=== PATIENT | male | born 1960 | race Caucasian/White ===

== ENCOUNTER → 2024-05-27 16:30 | Outpatient (REF) | payer OTHER, SELFPAY | LOC: RAD 16:30 | PROVIDERS: ATTENDING PHYSICIAN Family Medicine; FAMILY PHYSICIAN Internal Medicine Cardiovascular Disease | DX: M25.572 Pain in left ankle and joints of left foot (principal) | CPT/HCPCS: 73610 ==

== ENCOUNTER 2024-07-06 06:19 | Day surgery (SDC) | payer OTHER, SELFPAY | END 2024-07-06 10:06 | disposition home or self-care (01) | LOC: GI 06:19 | PROVIDERS: ATTENDING PHYSICIAN Internal Medicine Gastroenterology | DX: Z12.11 Encounter for screening for malignant neoplasm of colon (principal); D12.2 Benign neoplasm of ascending colon; K63.89 Other specified diseases of intestine; K57.30 Diverticulosis of large intestine without perforation or abscess without bleeding; Q43.8 Other specified congenital malformations of intestine; Z83.719 Family history of colon polyps, unspecified; K64.8 Other hemorrhoids | CPT/HCPCS: 45385; 45380; 88305 ==

== ENCOUNTER 2025-01-07 15:24 | Emergency (ER) | payer OTHER, SELFPAY ==
[2025-01-07 15:28] VITALS: BP 165/84
[2025-01-07 16:19] VITALS: BP 138/79
[2025-01-07 16:49] LABS: % Basophils 0.4 % (0-2); % Eosinophils 3.2 % (0-6); % Immature Granulocytes 0.4 % (0-0.5); % Lymphocytes 7.8 % (20.5-51.1); % Neutrophils 84.2 % (42.2-75.2); Absolute Eosinophils 0.3 10^3/uL (0-0.7); Absolute Lymphocytes 0.6 10^3/uL (1.2-3.4); Absolute Monocytes 0.3 10^3/uL (0.1-0.6); Absolute Neutrophils 6.8 10^3/uL (1.4-6.5); Hematocrit 39.3 % (39.0-52.0); Hemoglobin 13.9 g/dL (13.0-18.0); Mean Corp Hgb Conc. 35.4 g/dL (33.0-37.0); Mean Corpuscular Volume 81.9 fL (80.0-94.0); Nucleated Red Blood Cells % 0 % (-); Platelet Count 196 10^3/uL (130-400); Red Cell Dist. Width 12.2 % (11.5-14.5); White Blood Cell Count 8.1 10^3/uL (4.8-10.8)
[2025-01-07 16:59] LABS: Lactic Acid 1.3 mmol/L (0.7-2.0)
[2025-01-07 17:00] VITALS: BP 118/71
[2025-01-07 17:06] LABS: ALT (SGPT) 76 U/L (0-50); AST (SGOT) 48 U/L (17-59); Albumin 3.9 g/dl (3.5-5.0); Alkaline Phosphatase 50 U/L (38-126); Blood Urea Nitrogen 20 mg/dl (9-20); Calcium 8.9 mg/dl (8.4-10.2); Carbon Dioxide 22 mmol/L (22-30); Chloride 103 mmol/L (98-107); Glucose 144 mg/dl (70-99); Lipase 212 U/L (23-300); Magnesium 2.2 mg/dl (1.6-2.3); Potassium 4.3 mmol/L (3.5-5.1); Sodium 132 mmol/L (135-145); Total Protein 6.8 g/dl (6.3-8.2); eGFR > 60.00
[2025-01-07 17:12] LABS: Troponin I < 0.012 ng/ml
[2025-01-07 17:37] LABS: TSH Reflex To Free T4 3.12 uIU/ml (0.47-4.68)
[2025-01-07 18:00] VITALS: BP 118/77
[2025-01-07 18:48] LABS: Urine Albumin 2+ (Neg - Trace); Urine Bilirubin Negative (Negative); Urine Character Clear (Clear); Urine Color Amber; Urine Glucose Negative (Negative); Urine Ketone 2+ (Negative); Urine Leukocyte Negative (Negative); Urine Nitrite Negative (Negative); Urine Occult Blood 2+ (Negative); Urine Specific Gravity 1.025 (<1.030); Urine Urobilinogen 1+ (Neg - 1+)
[2025-01-07 18:56] LABS: Urine Red Blood Cell 0-2 /HPF (0-2); Urine Squamous Cell 0-2 /LPF (Few); Urine White Cell 0-2 /HPF (0-5)
--- NOTE | 2025-01-07 20:59 | ED.GENMED ---
History of Present Illness
General
Chief Complaint: Fatigue
Source: patient
Time Seen by Provider: 01/07/25 16:04
History of Present Illness
History of Present Illness:
Note:
CHIEF COMPLAINT(S)
Fatigue and weight loss.
HISTORY OF PRESENT ILLNESS
The patient is a 64-year-old male with a significant past medical history of hypertension and pre-diabetes (A1C of 6.4) presenting with a primary complaint of profound fatigue over the last two weeks. He reports feeling exhausted, having only about
15% of his usual energy level. The patient has noted a 17-pound weight loss during this period, secondary to poor appetite. 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 He
initially experienced fever and chills, which have since resolved. Additionally, he experiences palpitations without associated chest pain. The patient suspects a possible systemic infection and has self-administered doxycycline and
clindamycin for abscesses on his chin and knee, which he attributes to occupational exposure. He also reports GERD symptoms and believes he might have a hiatal hernia. He has recently tested negative for Lyme disease and COVID-19. His liver enzymes
were reportedly elevated approximately two weeks ago but have since normalized.
ADDITIONAL HISTORY OBTAINED FROM SOURCES OTHER THAN THE PATIENT
According to the patient, his spouse noted fever and chills last week.
CHRONIC MEDICAL CONDITIONS SIGNIFICANTLY AFFECTING CARE
Chronic conditions affecting care: hypertension, pre-diabetes.
SOCIAL DETERMINANTS AFFECTING HEALTH
The patient works in a high-stress environment at a intermediate. He reports occupational exposure to potential infections and notes previous alcohol use, stating he has significantly reduced intake with very minimal consumption over the last nine months.
ALLERGIES
No known drug allergies.
REVIEW OF SYSTEMS
- Constitutional: Fatigue, unintended weight loss, fever and chills initially.
- Cardiac: Palpitations without pain.
- Gastrointestinal: Poor appetite, burping, suspected hiatal hernia.
- Respiratory: No shortness of breath mentioned.
PHYSICAL EXAM
- General: Awake, alert, oriented. No respiratory distress.
- HEENT
Pupils equal and reactive.
- Neck: No focal motor deficits, healed lesion under the left chin.
- Cardiovascular: No murmurs, no evidence of deep vein thrombosis.
- Respiratory: Lungs clear.
- Abdomen: Non-distended.
- Skin: 3 cm x 3 cm reddened lesion above the right patella with scabbing, no fluctuance or surrounding cellulitis; small left axillary pustule without surrounding cellulitis.
PLAN
The plan involves obtaining a comprehensive set of laboratory tests, including CBC and liver function tests, to evaluate for any systemic infection or other causes contributing to fatigue. The patient will also be prescribed a full course of
non- doxycycline for suspected MRSA skin infections.
DIFFERENTIAL DIAGNOSIS
The Differential Diagnosis includes, in no particular order and is not limited to:
1. Chronic fatigue syndrome
2. Mononucleosis
3. Anemia
4. Systemic infection
5. Uncontrolled diabetes
6. Heart failure
7. Chronic obstructive pulmonary disease
8. Depression
9. Endocarditis
10. Hyperthyroidism
EKG
My independent EKG interpretation is:
- Rhythm: Normal sinus rhythm
- Heart rate: 98 beats per minute
- Notable finding: Left intraventricular conduction delay
- Abnormalities: Non-specific ST-T wave changes
Disposition:
MEDICAL DECISION MAKING
Chronic conditions affecting care: hypertension, pre-diabetes. Differential diagnoses include MRSA skin infections.
MANAGEMENT OF THE PATIENTS CARE WAS DISCUSSED WITH
Advised the patient to follow up with PCP for further workup if symptoms do not improve.
MEDICATION RECONCILIATION
Prescribed Bactrim for 10 days for coverage of suspected MRSA skin infections. Recommended Bactrim ointment for nasal application every evening for the first 10 days of each month for prophylaxis.
INDEPENDENT REVIEW OF LABS AND INTERPRETATION OF TESTS
My independent review of urinalysis is 2+ microscopic hematuria without signs of infection. Chemistry is grossly unremarkable except for an ALT of 76 U/L. Troponin is negative. My independent review of CBC shows normal leukocyte count and normal
hemoglobin levels. My independent interpretation of the chest X-ray is no acute pulmonary pneumonia.
PATHOLOGIES TO CONSIDER
Consideration of systemic infection, particularly MRSA, given the skin lesions and occupational exposure. Potential underlying causes like anemia or systemic infections should also be considered.
FOLLOW-UP INSTRUCTIONS
Patient advised to follow up with primary care physician if symptoms persist or worsen.
PLAN
Recommend a daily hygiene regimen including skin cleansing and monitoring of skin lesions.
Phy Exam
Physical Exam
Physical Exam:
.
Course
Orders/Labs/Results
Orders:
Orders
01/07/25 15:34
EKG [Electrocardiogram (*1)] Urgent
Reason for Study: Chest Pain
01/07/25 15:35
EKG- Treatment ONCE
01/07/25 16:32
Complete Blood Count/With Diff Urgent
Comprehensive Metabolic Panel Urgent
Lactic Acid Urgent
Lipase Urgent
Magnesium Urgent
TSH Reflex To Free T4 Urgent
Troponin I Urgent
Blood Culture Q30M
[facility] Source: Blood/Venous
Specimen Description:
Blood Culture Q30M
[facility] Source: Blood/Venous
Specimen Description:
01/07/25 18:33
CR Chest - 2 Views Urgent
Comment:
Reason For Exam: weakness
01/07/25 18:40
Urinalysis Reflex To Culture Urgent
Date Specimen was Collected: 01/07/25
Time Specimen was Collected: 18:38
Urine Microscopic Reflex Cult Urgent
Abnormal Lab Results
01/07/25 01/07/25
16:32 18:40
Absolute Neuts (auto) 6.8 H 10^3/uL
(1.4-6.5)
Absolute Lymphs (auto) 0.6 L 10^3/uL
(1.2-3.4)
Neutrophils % 84.2 H %
(42.2-75.2)
Lymphocytes % 7.8 L %
(20.5-51.1)
Sodium 132 L mmol/L
(135-145)
Glucose 144 H mg/dl
(70-99)
ALT 76 H U/L
(0-50)
Urine Ketones 2+ A
(Negative)
Ur Occult Blood Reflex 2+ A
(Negative)
Urine Albumin (Reflex) 2+ A
(Neg - Trace)
01/07/25 16:32
01/07/25 16:32
Vital Signs
Initial and Last Documented VS:
Initial Vital Signs
Temp Pulse Resp BP Pulse Ox
98.9 F 68 16 165/84 99
01/07/25 15:28 01/07/25 15:28 01/07/25 15:28 01/07/25 15:28 01/07/25 15:28
Last Documented Vital Signs
Temp Pulse Resp BP Pulse Ox
99.4 F 91 11 118/77 98
01/07/25 19:04 01/07/25 19:00 01/07/25 18:45 01/07/25 18:00 01/07/25 21:11
*Pulse Oximetry
SaO2: 98
Oxygen Mode of Delivery: Room air
Patient hypoxic: no
*Critical Care Note
Total Time (30-74mins, 75-104mins- exclusive of procedures): Not Applicable
ED Attending Note
-
Portions of this chart may have been created with voice recognition software.� Occasional wrong word or��sound alike� substitutions may have occurred due to the inherent limitations of voice recognition software.
Discharge Plan
Departure
Patient Disposition: Home (Routine Discharge)
Date of Disposition: 01/07/25
Time of Disposition: 21:07
Patient with high blood pressure during this ER visit?: No
Discharge Problem:
Fatigue
Instructions: Fatigue (DC), Generalized Weakness (DC)
Referrals:
Irvin Godinez MD [Family Provider, Family Practice]
Activity Restrictions/Additional Instructions:
Please see your doctor in follow-up in the next 3 to 5 days. Return immediately for fevers, vomiting, abdominal pain, back pain or any other concerns. If symptoms persist, further workup may be necessary. Please use Hibiclens washes daily as
discussed and apply warm compresses to your skin lesions. Use Bactroban to the nose nightly for the first 10 days of the month every month. You did have microscopic blood in your urine. Please have your doctor repeat your urinalysis to ensure
this clears but if it does not, you will need further workup.
Interventions
Interventions:
*Risk Screen - Suicide Last Done: 01/07/25 15:28
*General Assessment Last Done: 01/07/25 19:05
*Neglect/Abuse Screening Last Done: 01/07/25 15:28
*ED- Fall Risk Assessment Last Done: 01/07/25 19:05
Discharge Date and Time
Print Language: EQUATORIAL GUINEAN
== END 2025-01-07 21:17 | disposition home or self-care (01) ==
LOC: EMR 15:24
PROVIDERS: EMERGENCY PHYSICIAN Emergency Medicine; FAMILY PHYSICIAN Family Medicine
DX: L98.8 Other specified disorders of the skin and subcutaneous tissue (principal); R53.83 Other fatigue; I10 Essential (primary) hypertension; R73.03 Prediabetes; R31.29 Other microscopic hematuria
CPT/HCPCS: 99285; 71046; 80053; 81003; 81015; 83605; 83690; 83735; 84443; 84484; 85025; 87040; 93005